=== PATIENT | male | born 1985 | race American Indian/Alaskan Native ===

== ENCOUNTER 2017-12-19 04:10 | Emergency (ER) | payer SELFPAY ==
[2017-12-19] MEDS ORDERED: TORADOL ONE (04:23)
[2017-12-19 04:30] VITALS: BP 138/80
[2017-12-19] MEDS ORDERED: TORADOL IM ONE (04:30)
--- NOTE | 2017-12-19 08:07 | Emergency Department Report ---
ED ENT HPI - General Chief complaint: Sore Throat Stated complaint: SORE THROAT Time Seen by Provider: 12/19/17 07:57 Source: patient Mode of arrival: Ambulatory Limitations: No Limitations - History of Present Illness Initial comments: This is a 32-year-old -[place] male who presents with a sore throat and difficulty swallowing for 2 days. States symptoms got worse this morning which prompted him to come in. He was unable to swallow spit because tonsils were swollen. Patient denies recent sick contacts. He has not taken anything for symptom relief. Patient denies fever, nausea or vomiting, chest pain, shortness of breath, and body aches. MD complaint: sore throat, difficulty swallowing Onset/Timin -: days(s) Severity: moderate Severity scale (0 -10): 8 Quality: aching Consistency: constant Improves with: none Worsens with: swallowing, eating Associated Symptoms: pain with swallowing, sore throat. denies: fever, cough, gum swelling, toothache, tinnitus, hearing loss, discharge from ear, rhinorrhea - Related Data Previous Rx's Medication Instructions Recorded Last Taken Type HYDROcodone/ACETAMINOPHEN [Lortab 1 each PO Q8H #15 tablet 11/08/13 Unknown Rx 7.5-325 mg Tablet] Ibuprofen [Motrin] 800 mg PO Q8H #030 tablet 11/08/13 Unknown Rx Methocarbamol [Robaxin] 750 mg PO Q8H #21 tablet 11/08/13 Unknown Rx metroNIDAZOLE [Flagyl] 500 mg PO BID 10 Days tablet 12/27/13 Unknown Rx Guaifenesin/Dm/Pseudoephedrine 1 each PO BID #10 tablet 12/19/17 Unknown Rx [Capmist Dm Tablet] Prednisone [predniSONE 5 mg (6-Day 5 mg PO .TAPER #1 tab.ds.pk 12/19/17 Unknown Rx Pack, 21 Tabs)] Allergies Allergy/AdvReac Type Severity Reaction Status Date / Time No Known Allergies Allergy Verified 12/27/13 11:41 ED Dental HPI - General Chief complaint: Sore Throat Stated complaint: SORE THROAT Time Seen by Provider: 12/19/17 07:57 Source: patient Mode of arrival: Ambulatory Limitations: No Limitations - Related Data Previous Rx's Medication Instructions Recorded Last Taken Type HYDROcodone/ACETAMINOPHEN [Lortab 1 each PO Q8H #15 tablet 11/08/13 Unknown Rx 7.5-325 mg Tablet] Ibuprofen [Motrin] 800 mg PO Q8H #030 tablet 11/08/13 Unknown Rx Methocarbamol [Robaxin] 750 mg PO Q8H #21 tablet 11/08/13 Unknown Rx metroNIDAZOLE [Flagyl] 500 mg PO BID 10 Days tablet 12/27/13 Unknown Rx Guaifenesin/Dm/Pseudoephedrine 1 each PO BID #10 tablet 12/19/17 Unknown Rx [Capmist Dm Tablet] Prednisone [predniSONE 5 mg (6-Day 5 mg PO .TAPER #1 tab.ds.pk 12/19/17 Unknown Rx Pack, 21 Tabs)] Allergies Allergy/AdvReac Type Severity Reaction Status Date / Time No Known Allergies Allergy Verified 12/27/13 11:41 ED Review of Systems ROS: Stated complaint: SORE THROAT Other details as noted in HPI Constitutional: denies: chills, fever ENT: throat pain. denies: ear pain, dental pain, hearing loss, epistaxis, congestion Respiratory: denies: cough, shortness of breath, wheezing Cardiovascular: denies: chest pain, palpitations Gastrointestinal: denies: abdominal pain, nausea, diarrhea Skin: denies: rash, lesions Neurological: denies: headache, weakness, paresthesias Psychiatric: denies: anxiety, depression ED Past Medical Hx - Past Medical History Previous Medical History?: No - Surgical History Past Surgical History?: No - Social History Smoking Status: Current Every Day Smoker Substance Use Type: Marijuana - Medications Home Medications: Home Medications Medication Instructions Recorded Confirmed Last Taken Type HYDROcodone/ACETAMINOPHEN [Lortab 1 each PO Q8H #15 tablet 11/08/13 Unknown Rx 7.5-325 mg Tablet] Ibuprofen [Motrin] 800 mg PO Q8H #030 tablet 11/08/13 Unknown Rx Methocarbamol [Robaxin] 750 mg PO Q8H #21 tablet 11/08/13 Unknown Rx metroNIDAZOLE [Flagyl] 500 mg PO BID 10 Days tablet 12/27/13 Unknown Rx Guaifenesin/Dm/Pseudoephedrine 1 each PO BID #10 tablet 12/19/17 Unknown Rx [Capmist Dm Tablet] Prednisone [predniSONE 5 mg (6-Day 5 mg PO .TAPER #1 tab.ds.pk 12/19/17 Unknown Rx Pack, 21 Tabs)] ED Physical Exam - General Limitations: No Limitations General appearance: alert, in no apparent distress - ENT ENT exam: Present: mucous membranes moist, other (turbinates mildly congested with clear discharge). Absent: normal orophraynx (erythematous posterior pharynx) - Neck Neck exam: Present: normal inspection - Respiratory Respiratory exam: Present: normal lung sounds bilaterally. Absent: respiratory distress - Cardiovascular Cardiovascular Exam: Present: regular rate, normal rhythm. Absent: systolic murmur, diastolic murmur, rubs, gallop - GI/Abdominal GI/Abdominal exam: Present: soft, normal bowel sounds - Neurological Exam Neurological exam: Present: alert, oriented X3 - Psychiatric Psychiatric exam: Present: normal affect, normal mood - Skin Skin exam: Present: warm, dry, intact, normal color. Absent: rash ED Course Vital Signs 12/19/17 04:25 Temperature 98.6 F Pulse Rate 76 Respiratory 18 Rate Blood Pressure 138/80 O2 Sat by Pulse 100 Oximetry ED Medical Decision Making - Medical Decision Making Patient examined by me and stable. No distress noted. Vitals normal. Rapid strep obtained and negative. Given Toradol 30 mg IM once in ER. Physical findings susceptible of acute pharyngitis, viral. Start prednisone taper, Mucinex DM. Take tylenol or ibuprofen for pain. Discussed plan with patient and he agreed with plan to treat outpatient. Discharged home. Return to work tomorrow. Follow up with PCP in 48-72 hours. Critical care attestation.: If time is entered above; I have spent that time in minutes in the direct care of this critically ill patient, excluding procedure time. ED Disposition Clinical Impression: Sore throat (viral) Pharyngitis Qualifiers: Pharyngitis/tonsillitis etiology: unspecified etiology Qualified Code(s): J02.9 - Acute pharyngitis, unspecified Disposition: DC-01 TO HOME OR SELFCARE Is pt being admited?: No Does the pt Need Aspirin: No Condition: Stable Instructions: Pharyngitis (ED) Additional Instructions: Expect symptoms to improve within 3 or 4 days. There is no need for bed rest or isolation. Use tyleonl or ibuprofen for symptoms of sore throat, headache, and fever. Return to work in 24 hours of taking antibiotics. Follow up with Primary Care Provider in 48-72 hours. Prescriptions: Guaifenesin/Dm/Pseudoephedrine [Capmist Dm Tablet] 1 each PO BID #10 tablet Prednisone [predniSONE 5 mg (6-Day Pack, 21 Tabs)] 5 mg PO .TAPER #1 tab.ds.pk Referrals: [facility] [Outside] - 3-5 Days [facility] [Outside] - 3-5 Days [facility] [Outside] - 3-5 Days Forms: Work/School Release Form(ED) Time of Disposition: 08:12 Print Language: LUXEMBOURGER
== END 2017-12-19 08:19 | disposition home or self-care (01) ==
LOC: ED 04:10
DX: J02.9 Acute pharyngitis, unspecified (principal); F17.200 Nicotine dependence, unspecified, uncomplicated; F12.10 Cannabis abuse, uncomplicated
CPT/HCPCS: 87116; 87430; 96372; 99283; J1885

== ENCOUNTER 2018-06-24 01:05 | Emergency (ER) | payer SELFPAY | END 2018-06-24 04:45 | disposition left against medical advice (07) | LOC: ED 01:05 ==

== ENCOUNTER 2021-04-11 00:55 | Emergency (ER) | payer SELFPAY ==
[2021-04-11 00:58] VITALS: BP 128/72
== END 2021-04-11 03:00 | disposition left against medical advice (07) ==
LOC: ED 00:55
DX: Z02.89 Encounter for other administrative examinations (principal); Z53.21 Procedure and treatment not carried out due to patient leaving prior to being seen by health care provider